=== PATIENT | female | born 1995 | race Caucasian/White ===

== ENCOUNTER 2019-04-10 19:02 | Emergency (ER) | payer BC ==
[~2019-04-10 19:02] MED LIST: MINO50TA7 PO
--- NOTE | 2019-04-10 19:11 | ER Report ---
History and Physical Time Seen By MD: 19:11 Hx. of Stated Complaint: pt woke up this morning, all joints are stiff. states it feels like what she thinks arthritis would feel like HPI/ROS CHIEF COMPLAINT: Achy joints HISTORY OF PRESENT ILLNESS: 23-year-old female patient presents to emergency room with complaint of achy joints. Patient states that she woke up today, she felt that her feet were swollen, that she was having significant amounts of pain whenever she stood up and walked. Patient states that she went to work and seemed to get better she was walking around. She did take a single ibuprofen this morning. She states that she then sat down and rested for a few minutes, after that she was again having pain with ambulation. She states that as the day progressed that she started having pain in her elbows and her hands. She states that currently she is not having any pain in her shoulders, hips, back. She states she does have pain to her hands, elbows, knees and feet. She states that she is not had any injury. She denies any numbness or tingling. She states that she is concerned about possible development of arthritis. REVIEW OF SYSTEMS: Respiratory: No cough, no dyspnea. Cardiovascular: No chest pain, no palpitations. Gastrointestinal: No vomiting, no abdominal pain. Musculoskeletal: As noted above Allergies: Coded Allergies: No Known Drug Allergies (Unverified , 09/10/14) Home Meds Active Scripts Ketorolac Tromethamine (KETOROLAC TROMETHAMINE) 10 Mg Tab, 10 MG PO Q6H, #20 TAB Prov:AIDAN GARNER ICE C[employer]TER 04/10/19 Reported Medications Minocycline Hcl (MINOCYCLINE HCL) 50 Mg Tablet, 50 MG PO DAILY 09/10/14 Past Medical/Surgical History Patient has no pertinent medical history. Patient has a surgical history of surgery to the right heel, wisdom teeth removed. Reviewed Nurses Notes: Yes Hx Smoking: No Smoking Status: Never Smoker Hx Substance Use Disorder: No Constitutional Vital Sign - Last 24 Hours 04/10/19 04/10/19 04/10/19 04/10/19 19:06 19:08 19:32 20:00 Temp 98.1 Pulse 91 78 Resp 16 B/P (MAP) 125/86 125/86 (99) 101/71 (81) Pulse Ox 95 95 04/10/19 20:02 Pulse 68 Pulse Ox 96 Physical Exam General Appearance: The patient is alert, has no immediate need for airway protection and no current signs of toxicity. ENT: Tympanic membranes are pearly-[place], auditory canals are patent, mucous membranes are moist. Respiratory: Chest is non tender, lungs are clear to auscultation. Cardiac: regular rate and rhythm Gastrointestinal: Abdomen is soft and non tender, no masses, bowel sounds normal. Musculoskeletal: Neck: Neck is supple and non tender. Extremities have full range of motion and are non tender. Patient has tenderness to bilateral feet, hands, elbows, knees. Skin: No rashes or lesions. DIFFERENTIAL DIAGNOSIS: After history and physical exam differential diagnosis was considered for viral syndrome, generalized inflammation. Medical Decision Making Data Points Result Diagram: 04/10/19193204/10/191932 Laboratory Hematology Test 04/10/19 19:33 Red Blood Count 4.59 M/uL (4.17-5.56) Mean Corpuscular Volume 82.0 fL (80.0-96.0) Mean Corpuscular Hemoglobin 27.4 pg (26.0-33.0) Mean Corpuscular Hemoglobin Concent 33.4 g/dL (32.0-36.0) Red Cell Distribution Width 14.9 % (11.5-14.5) Mean Platelet Volume 8.0 fL (7.2-11.1) Neutrophils (%) (Auto) 63.8 % (39.4-72.5) Lymphocytes (%) (Auto) 22.6 % (17.6-49.6) Monocytes (%) (Auto) 7.4 % (4.1-12.4) Eosinophils (%) (Auto) 5.7 % (0.4-6.7) Basophils (%) (Auto) 0.5 % (0.3-1.4) Nucleated RBC Relative Count (auto) 0.1 /100WBC Neutrophils # (Auto) 2.6 K/uL (2.0-7.4) Lymphocytes # (Auto) 0.9 K/uL (1.3-3.6) Monocytes # (Auto) 0.3 K/uL (0.3-1.0) Eosinophils # (Auto) 0.2 K/uL (0.0-0.5) Basophils # (Auto) 0.0 K/uL (0.0-0.1) Nucleated RBC Absolute Count (auto) 0.00 K/uL Erythrocyte Sedimentation Rate 4 mm/HOUR (0-20) Sodium Level 141 mmol/L (137-145) Potassium Level 3.9 mmol/L (3.5-5.0) Chloride Level 105 mmol/L (98-107) Carbon Dioxide Level 25 mmol/L (22-31) Blood Urea Nitrogen 12 mg/dl (7-18) Creatinine 0.80 mg/dl (0.52-1.04) Glomerular Filtration Rate Calc > 60.0 Random Glucose 97 mg/dl (75-110) Calcium Level 9.1 mg/dl (8.4-10.2) Total Bilirubin 0.2 mg/dl (0.2-1.3) Aspartate Amino Transf (AST/SGOT) 31 U/L (0-35) Alanine Aminotransferase (ALT/SGPT) 32 U/L (0-56) Alkaline Phosphatase 52 U/L (0-126) C-Reactive Protein 0.8 mg/dl (<1.0) Total Protein 6.5 g/dl (6.3-8.2) Albumin 3.8 g/dl (3.5-5.0) Monoscreen Negative (NEGATIVE) Chemistry Test 04/10/19 19:33 White Blood Count 4.0 k/uL (4.5-11.0) Red Blood Count 4.59 M/uL (4.17-5.56) Hemoglobin 12.6 g/dL (12.0-16.0) Hematocrit 37.6 % (34.0-47.0) Mean Corpuscular Volume 82.0 fL (80.0-96.0) Mean Corpuscular Hemoglobin 27.4 pg (26.0-33.0) Mean Corpuscular Hemoglobin Concent 33.4 g/dL (32.0-36.0) Red Cell Distribution Width 14.9 % (11.5-14.5) Platelet Count 310 K/uL (150-450) Mean Platelet Volume 8.0 fL (7.2-11.1) Neutrophils (%) (Auto) 63.8 % (39.4-72.5) Lymphocytes (%) (Auto) 22.6 % (17.6-49.6) Monocytes (%) (Auto) 7.4 % (4.1-12.4) Eosinophils (%) (Auto) 5.7 % (0.4-6.7) Basophils (%) (Auto) 0.5 % (0.3-1.4) Nucleated RBC Relative Count (auto) 0.1 /100WBC Neutrophils # (Auto) 2.6 K/uL (2.0-7.4) Lymphocytes # (Auto) 0.9 K/uL (1.3-3.6) Monocytes # (Auto) 0.3 K/uL (0.3-1.0) Eosinophils # (Auto) 0.2 K/uL (0.0-0.5) Basophils # (Auto) 0.0 K/uL (0.0-0.1) Nucleated RBC Absolute Count (auto) 0.00 K/uL Erythrocyte Sedimentation Rate 4 mm/HOUR (0-20) Glomerular Filtration Rate Calc > 60.0 Calcium Level 9.1 mg/dl (8.4-10.2) Total Bilirubin 0.2 mg/dl (0.2-1.3) Aspartate Amino Transf (AST/SGOT) 31 U/L (0-35) Alanine Aminotransferase (ALT/SGPT) 32 U/L (0-56) Alkaline Phosphatase 52 U/L (0-126) C-Reactive Protein 0.8 mg/dl (<1.0) Total Protein 6.5 g/dl (6.3-8.2) Albumin 3.8 g/dl (3.5-5.0) Monoscreen Negative (NEGATIVE) ED Course/Re-evaluation ED Course Patient was admitted to an exam room, history and physical were obtained. Differential diagnoses were considered. On examination lungs are clear, heart is regular, abdomen is soft and nontender. Patient does have some tenderness to bilateral feet, hands, knees and elbows. Patient has no pain to shoulders or hips. An IV was started, a CBC, CMP, CRP, ESR and a Monospot were done. Lab r esults were unremarkable. I believe that this is likely secondary to a viral illness, that would explain the sudden onset as well as the distinct distribution in hands, elbows, knees and feet. I don't believe that it is arthritic, as she has sudden onset. Joints do not seem to be erythematous warm t o touch. We will go ahead and discharge patient home at this time. We will do anti-inflammatories to help with discomfort and pain. We will have her get plenty of rest, increase her fluid intake. She is follow-up with primary care provider next week, she is return to emergency room if condition worsens. Patient verbalized understanding and agreement with plan. Decision to Disposition Date: Apr 10, 2019 Decision to Disposition Time: 20:13 Depart Departure Latest Vital Signs Vital Signs Date Time Temp Pulse Resp B/P (MAP) Pulse Ox O2 Delivery O2 Flow Rate FiO2 04/10/19 20:02 68 96 04/10/19 20:00 101/71 (81) 04/10/19 19:06 98.1 16 Impression: Primary Impression: Viral syndrome Condition: Improved Disposition: HOME OR SELF-CARE New Scripts Ketorolac Tromethamine (KETOROLAC TROMETHAMINE) 10 Mg Tab 10 MG PO Q6H, #20 TAB Prov: AIDAN GARNER 04/10/19 Patient Instructions: Viral Syndrome (ED) Additional Instructions: Increase fluid intake. Get plenty of rest. Take the medication as directed, 1 tab every 6 hours. Return to the ER if condition worsens. Follow up with your primary care provider in the next week. Limit activity by pain. AIDAN GARNER Apr 10, 2019 19:11
[2019-04-10] MEDS ORDERED: NS(*) 0.9% 1000 ML BAG 1,000 ML IV ONE (19:25)
[2019-04-10 19:55] LABS: PLATELET COUNT, AUTOMATED 310 K/uL (150-450)
[2019-04-10 20:00] VITALS: BP 101/71
[2019-04-10] MEDS ORDERED: KET10 PO (20:14)
[2019-04-10] MEDS ORDERED: KETOROLAC TROM 10 MG TAB TH PO ONE (20:20)
== END 2019-04-10 20:25 | disposition home or self-care (01) ==
LOC: ER 19:11
DX: B34.9 Viral infection, unspecified (principal)
CPT/HCPCS: 85025; 85651; 86140; 86308; 96360; 99283; J7030; 82040; 82247; 82310; 82374; 82435; 82565; 82947; 84075; 84132; 84155; 84295; 84450; 84460; 84520